=== PATIENT | female | born 1985 ===

== ENCOUNTER 2025-06-16 09:37 | Emergency (ER) | payer OTHER, SELFPAY ==
--- NOTE | 2025-06-16 09:43 | ED_ITS ---
HPI - General Adult General Chief complaint: General Medical Stated complaint: ?OD or anxiety meds issue? Time Seen by Provider: 06/16/25 09:42 Source: patient Mode of arrival: wheelchair Limitations: no limitations History of Present Illness ED Provider: Susanna Mathur PA-C HPI narrative: Patient is a 40 year old assigned female at with no reported medical history presenting to the emergency department today being tired. Patient states that she works overnight shifts as a [employer] and has been working a lot lately due to being short staffed. Patient states that she got into the back of an uber after taking her ambien + xanax for sleep and began to feel tired in the back of the uber. Patient's [employer] auto transport driver got concerned when the patient fell asleep and he could not wake her so he drove her to the hospital. Patient states that she took no other medications and was not attempting to hurt herself. Patient denies any other complaints at this time. Related Data Allergies Allergy/AdvReac Type Severity Reaction Status Date / Time No Known Allergies Allergy Verified 06/16/25 09:50 Review of Systems Constitutional: Constitutional: Reports as per HPI Eyes: Eyes: Reports as per HPI ENT: Reports as per HPI Cardiovascular: Cardiovascular: Reports as per HPI Respiratory: Respiratory: Reports as per HPI Gastrointestinal: Gastrointestinal: Reports as per HPI Genitourinary: Genitourinary: Reports as per HPI Musculoskeletal: Musculoskeletal: Reports as per HPI Integumentary/Breasts: Skin/Breast: Reports as per HPI Neurologic: Reports as per HPI Psychiatric: Psychiatric: Reports as per HPI Endocrine: Endocrine: Reports as per HPI Hematologic/Lymphatic: Hematologic/Lymphatic: Reports as per HPI Allergic/Immunologic: Allergic/Immunologic: Reports as per HPI COUNT INCLUDES THE [facility] Past Medical History Attestation statement: The following information was validated with the patient. Source: old records reviewed and nursing notes reviewed Social History Social History Advance Directives: No Advance Directives Information Provided: Yes Physical Exam ED Vital Signs: Vital Signs - 24 hr 06/16/25 09:47 06/16/25 10:52 06/16/25 12:02 Temperature 98.4 F 98.4 F Pulse Rate 96 96 84 Respiratory Rate 16 16 12 Blood Pressure 94/54 L 94/54 L 89/54 L Pulse Oximetry 96 96 95 Oxygen Delivery Method Room Air Room Air Room Air 06/16/25 15:39 Temperature Pulse Rate 104 H Respiratory Rate 16 Blood Pressure 118/68 Pulse Oximetry 98 Oxygen Delivery Method Room Air BMI result Body Mass Index 24.6 Const General: cooperative, no acute distress, alert and awake Nutritional Appearance: well nourished Orientation/consciousness: patient oriented x3 HENMT Head: Yes normal to inspection and Yes atraumatic Ears: hearing grossly normal bilaterally and external ears normal General nose exam: Normal external nose present, no nasal discharge noted and no epistaxis Face and sinus: Yes normal facial exam, No abrasion and No laceration Mouth: Normal oral and palatal mucosa present, no drooling and no muffled voice Eyes General: appearance normal, both eyes and all related structures Periorbital: periorbital findings normal Eyelids: Yes eyelids normal Conjunctivae: conjunctivae normal Pupils: Equal, round and reactive pupils present EOM: EOMs intact bilaterally Neck Neck: Yes normal visual inspection and Yes full ROM Resp Effort & Inspection: normal respiratory effort and able to speak in complete sentences Neuro General: patient oriented x3, moves all extremities and CN's II-XI intact bilaterally Cranial nerves: Yes Equal, round and reactive pupils present Cognition (Neuro): normal cognition Extrem General: Yes normal to inspection, Yes full ROM and Yes capillary refill normal Psych Appearance: grossly normal Mental Status: mental status grossly normal Affect: normal affect Attitude: cooperative Thought process: Normal thought process present Thought content: Normal thought content present Insight: Good insight present (Psych) Course Course Course Narrative: 1100 06/16/2025 Susanna Mathur PA-C ---> Patient was walking around the department well and without assistance - requested to be discharged. Patient went into the bathroom and was there for several minutes when the nurse had security open the door. Patient was found asleep on the floor in the bathroom. Search was performed and several bags of heroin, needles, and other unknown substances were confiscated from the patient. Patient to remain in the department until safe for discharge. Recovery consult placed. Medical Decision Making Medical Decision Making MDM Narrative: Patient is a 40 year old assigned female at with no reported medical history presenting to the emergency department today being tired. Patient's physical exam was as noted in the physical exam portion of this note. Patient had episodes of nodding off . Unable to stay awake for several minutes in a row but easily arousable to verbal stimulation. I explained my physical exam findings to the patient. I answered all questions asked by the patient. Patient attempted to discharge as noted in the course portion of this note and used heroin in the ED bathroom, as noted. Patient was placed back into her stretcher and allowed to rest for several hours. Patient continued to intermittently nod off but protected her airway and was easily arousable to verbal stimuli. Patient was seen by the CARE team and she declined any assistance from them at this time. Patient placed in observation at 0943 pending being awake enough to discharge safely. 1637 Susanna Mathur PA-C ---> Patient awake and able to ambulate safely. Patient cleared for discharge. CARE team to coordinate Lyft for patient. Observation ended. Differential Diagnosis Differential Diagnoses: The differential diagnosis associated with the presentation includes Substance use Substance abuse Admission/Observation Consideration of admission/observation: Escalation of care including admission/observation considered Patient would have been admitted to the hospital had her work up had any findings where hospital admission was appropriate and her clinical presentation warranted hospital admission. Consult Healthcare Provider Management of the patient was discussed with: Behavioral Health Provider (spoke with the CARE team as noted in the MDM Rationale portion of this note. ) Discharge Plan Discharge Clinical Impression: Overdose Qualifiers: Encounter type: initial encounter Injury intent: accidental or unintentional Qualified Code(s): T50.901A - Poisoning by unspecified drugs, medicaments and biological substances, accidental (unintentional), initial encounter Patient Disposition: Home, Self-Care Instructions: Adult Overdose (ED) Additional Instructions: You were seen in our Emergency Department for an overdose today. You may have been given narcan to take home with you today, please keep it near you if you are going to use again, so others can use it for you or themselves if needed. The number one risk for fatal overdose is using alone. [employer] is a / hotline where you can be on the phone with someone while you use, and they can call for help if they suspect an overdose: [phone] You may have been provided with safer injection?items, please take time to take care of YOU and your health. Use new supplies whenever possible to lessen the chances of infections and other illnesses.? If you need more supplies, please go to: [employer] [address] [place] Call or text to coordinate delivery of safer supplies. If you decide you want to stop or cut down on how much you?re using, please call the numbers on the list provided to you or you can come to our outpatient Addiction Treatment office [facility] (M-F 9am-5p) [address], [address] [place], [place]. [phone] IF you are prescribed home medications and/or you are taking over the counter medications at home - it is very important you continue to do so as prescribed / directed unless told otherwise. Follow up with a primary care provider. Return to the emergency department immediately if your symptoms worsen or if you develop any numbness, tingling, dizziness, shortness of breath, difficulty breathing, chest pain, blurry vision, loss of vision, nausea, vomiting, abdominal pain, fever, chills, back pain, or any other complaints. If you do not have a primary care provider - call any of the below numbers to establish and follow up with a primary care provider. [facility] ([place]) [phone] [place] [address], [address] [facility] ([address] [place]) [phone] [place] [address], [address] [facility], [address] [facility] ([address] [place]) [phone] [place] [address], [address] [facility], [address] [facility] ([place]) [phone] [place] [address] [address] [facility], [address] [facility] Family Medicine [phone] [address] [facility], [address] Please see the information below about our Patient Portal. If you are not yet enrolled in the [facility] Patient Portal, you will receive an enrollment email invitation following your visit to any [facility] setting. You may also self-enroll in the Patient Portal by visiting our website: [email or web address] The following information is required to access the Patient Portal: - Your [facility] Medical Record Number - Your personal home email address (must match what is in your electronic medical record, Registration staff can assist with this) - Name - Date of Capabilities of the Patient Portal: - Message some providers - View upcoming appointments - Access your health summary, medical history, and visit history - View current conditions and allergies - View procedure and lab results - View your medications, including guidelines, side effects, and precautions - Complete pre-appointment questionnaires requested by your provider - Ready summary reports of your office visits and procedures To access the Patient Portal Mobile [employer], follow these directions: - Search [employer] in the [employer] Store or [employer] Store - Download the [employer] - Search for [facility] - Enter your login/password Interventions: ED Discharge Assessment Last Done: 06/16/25 10:52 Print Language: Portuguese
[2025-06-16 09:47] VITALS: BP 94/54; PULSE 96; RESP 16; TEMP 36.9; O2SAT 96; BMI 24.6
[2025-06-16 10:52] VITALS: BP 94/54; PULSE 96; RESP 16; TEMP 36.9; O2SAT 96
--- NOTE | 2025-06-16 11:16 | PC.NURSE ---
pt requesting to use bathroom prior to discharge, dressed, waiting for paperwork and bus information for transport home. pt requesting tampons/pads from tech/RN while in the bathroom. primary RN Cari checked on pt in the bathroom, no answer, door opened from outside by this CC, pt lying up against door w eyes closed, RR even and unlabored. pt roused easily to name, stood up, sm amt of blood on neck. pt changed over by this CC w security, yellow socks/fall wrist band/chair alarm applied. belongings searched by security d/t concern for substance use, multiple baggies of heroin and rock type substance in pill vial w used needles found in pockets of coat and purse - items destroyed by security. remaining belongings inventoried by [employer]. pt endorses +fall, denies head strike/LOC/injuries. provider notified of the above.
--- OUTSIDE RECORDS SUMMARY | 2025-06-16 11:54 | XMS_ITS | Clinical Summary ---
Author Organization [facility] Address [address] [place] [address] Care Team Providers Care Spark Tester Name Role Phone Tyson Greene DO Unavailable [phone] Tyson Greene DO Primary Care Provider [phone] Allergies No known active allergies Medications LORazepam (ATIVAN) 0.5 MG tablet Take 0.5 mg by mouth every 6 hours as needed for anxiety. Active Social History Tobacco Use Types Packs/Day Years Used Date Smoking Tobacco: Never Assessed Comments Unknown Sex and Gender Information Value Date Recorded Sex Assigned at Female 05/10/2020 7:48 PM EDT Legal Sex Female 7:18 PM EDT Gender Identity Female 05/10/2020 7:48 PM EDT Sexual Orientation Not on file Last Filed Vital Signs Vital Sign Reading Time Taken Comments Blood Pressure 116/66 12/08/2023 8:54 PM EDT Pulse 72 12/08/2023 8:54 PM EDT Temperature 36.5 C (97.7 F) 12/08/2023 8:54 PM EDT Respiratory Rate 17 12/08/2023 8:54 PM EDT Oxygen Saturation 98% 12/08/2023 8:54 PM EDT Inhaled Oxygen Concentration - - Weight - - Height 154.9 cm (5' 1 ) 05/10/2020 7:20 PM EDT Body Mass Index - - Plan of Treatment Health Maintenance Due Date Last Done Comments Depression Screening 1991 Hepatitis C Screening 2005 DTaP,Tdap,and Td Vaccines (1 - Tdap) 2006 Pap Smear 2008 Cervical Cancer Screening 2017 HPV/Cotest 2017 COVID-19 Vaccine (2024-2 6 season) 2025 Influenza Vaccine (#1) 2025 Blood Pressure 12/08/2027 12/08/2023 Meningococcal B Vaccines Aged Out No longer eligible based on patient's age to complete this topic Meningococcal Vaccines Aged Out No lo nger eligible based on patient's age to complete this topic Pneumococcal Vaccine Aged Out No long er eligible based on patient's age to complete this topic [place] [address] [place] [address] [employer] [facility] [place] [address] Care Teams Spark Tester Relationship Specialty Start Date End Date Tyson Greene, [address] [address] PCP - Insurance Assigned PCP 12/08/23 Tyson Greene, 1 Formerly Named [facility] 1 [place] [address] PCP - General Family Practice 12/08/23
[2025-06-16 12:02] VITALS: BP 89/54; PULSE 84; RESP 12; O2SAT 95
[2025-06-16 15:39] VITALS: BP 118/68; PULSE 104; RESP 16; O2SAT 98
[2025-06-16] MEDS: Naloxone HCl Nasal TAKE HOME 4 MG SPRAY 8 MG NOSTRILALT (16:49)
== END 2025-06-16 16:49 | disposition home or self-care (01) ==
PROVIDERS: Emergency Provider Emergency Medicine
DX: T50.901A Poisoning by unspecified drugs, medicaments and biological substances, accidental (unintentional), initial encounter (principal); Y92.9 Unspecified place or not applicable
CPT/HCPCS: 99283; 99284; S9485